=== PATIENT | male | born 1970 | race Caucasian/White ===

== ENCOUNTER 2020-05-13 13:17 | Outpatient (CLI) | payer MEDICARE, SELFPAY ==
--- NOTE | 2020-05-13 13:35 | XR_ITS ---
WS: [id number] Chest 2 views, 05/13/2020 Clinical Data: SARCOIDOSIS Comparison: None. Findings: No nodules, masses or effusions are seen. The heart is enlarged. The pulmonary vascularity is not increased. No pneumonia or pneumothorax is seen. No hilar adenopathy is seen. The patient is h ad surgery in the lower cervical spine. XR/XR chest 2V* [id number] Impression: Cardiomegaly.
--- NOTE | 2020-05-13 13:35 | XR_ITS ---
WS: [id number] Left foot, 3 views, 05/13/2020 Clinical Data: LEFT TOE PAIN Comparison: None. Findings: There is an oblique fracture of the proximal phalanx of the left first toe. No displacement is seen. The remainder of the phalanges and the metatarsals are normal. The tarsal bones show no abnormalities . The soft tissues are normal. XR/XR foot LT min 3V* [id number] Impression: Undisplaced oblique fracture of left first toe proximal phalanx.
== END 2020-05-13 13:18 | disposition home or self-care (01) ==
LOC: RAD 13:31
PROVIDERS: PCP Family Medicine; Visit Provider Family Medicine
DX: D86.9 Sarcoidosis, unspecified (principal); I51.7 Cardiomegaly; S92.515A Nondisplaced fracture of proximal phalanx of left lesser toe(s), initial encounter for closed fracture; X58.XXXA Exposure to other specified factors, initial encounter
CPT/HCPCS: 71046; 73630

== ENCOUNTER → 2022-07-31 16:46 | Outpatient (BNVA) | payer MEDICARE, SELFPAY | PROVIDERS: PCP Family Medicine; Visit Provider Family Medicine | DX: E03.9 Hypothyroidism, unspecified (principal); E34.9 Endocrine disorder, unspecified; R35.0 Frequency of micturition; R25.2 Cramp and spasm; E11.9 Type 2 diabetes mellitus without complications; Z13.220 Encounter for screening for lipoid disorders; E78.5 Hyperlipidemia, unspecified; Z51.81 Encounter for therapeutic drug level monitoring | CPT/HCPCS: 82670; 83721; 83735; 84153; 84439; 84443 ==

== ENCOUNTER → 2022-08-01 08:56 | Outpatient (BNVA) | payer MEDICARE, SELFPAY | PROVIDERS: PCP Family Medicine; Visit Provider Family Medicine | DX: E34.9 Endocrine disorder, unspecified (principal); Z51.81 Encounter for therapeutic drug level monitoring; R73.09 Other abnormal glucose | CPT/HCPCS: 83036; 84403; 85025 ==

== ENCOUNTER → 2025-04-20 14:56 | Outpatient (BNVA) | payer MEDICARE, SELFPAY | PROVIDERS: PCP Family Medicine; Visit Provider Family Medicine | DX: Z51.81 Encounter for therapeutic drug level monitoring (principal); Z01.89 Encounter for other specified special examinations; W57.XXXA Bitten or stung by nonvenomous insect and other nonvenomous arthropods, initial encounter | CPT/HCPCS: 85025; 86003; 86008 ==